=== PATIENT | female | born 1970 | race Caucasian/White ===

== ENCOUNTER → 2024-06-11 16:50 | Outpatient (CLI) | payer OTHER, SELFPAY ==
--- NOTE | 2024-06-11 16:53 | DI.MRI.S_ITS ---
PROCEDURE: MR KNEE RT WO CON INDICATIONS: EVALUATE RT KNEE MENISCUS TEAR ACL TECHNIQUE: Noncontrast sagittal PD fast spin echo and T2 fast spin echo with fat saturation, sagittal 3-D FLASH with fat saturation; coronal T1 spin echo and PD fast spin echo with fat saturation, and axial PD fast spin echo with fat saturation through the knee. COMPARISON: None. FINDINGS: Image quality: Excellent. Menisci: In the medial meniscus, there is a horizontal longitudinal tear of the posterior horn, extending into the meniscus body. No extrusion of the medial meniscus body. The lateral meniscus is unremarkable. Cruciate ligaments: The fiber of the proximal ACL is discontinuous, concerning for high-grade to full-thickness tear. The PCL is intact. Medial structures: Grade 1 sprain of the MCL. Lateral structures: The lateral collateral ligament, long and short heads of the biceps femoris tendon appear intact. The popliteus tendon appears normal; the popliteofibular ligament appears intact. The posterosuperior and anteroinferior popliteomeniscal fascicles appear intact. The arcuate and fabellofibular ligaments appear intact, on either side of the lateral inferior geniculate artery. Iliotibial band appears normal. Anterior structures: The quadriceps tendon is intact. Mild tendinosis of the proximal patellar tendon. Mild Hoffa's fat pad edema. The patellofemoral ligaments are intact. Bones and cartilage: There is mild chondral irregularity in the median ridge, with mild subchondral marrow edema, degenerative. Cartilage of the trochlea is unremarkable. The cartilage of the medial and the lateral compartments are unremarkable. Mild marrow edema of the tibial eminence, reactive. No acute fracture. Joint space: Small knee effusion. Moderate popliteal cyst. Popliteal vasculature is unremarkable. IMPRESSION: 1. High-grade to full-thickness tear of the proximal ACL. 2. Horizontal longitudinal tear of the medial meniscus. 3. Mild chondrosis of the patellofemoral compartment. 4. Moderate sized popliteal cyst. Dictated by: Aziza Law M.D. on 06/12/2024 at 12:20 Approved by: Aziza Law M.D. on 06/12/2024 at 12:30
== END ==
LOC: MRI 16:52
PROVIDERS: PCP Student in an Organized Health Care Education/Training Program; Referring Provider Orthopaedic Surgery; Visit Provider Orthopaedic Surgery
DX: S83.241A Other tear of medial meniscus, current injury, right knee, initial encounter (principal); S83.511A Sprain of anterior cruciate ligament of right knee, initial encounter; M71.21 Synovial cyst of popliteal space [Baker], right knee; M22.41 Chondromalacia patellae, right knee; M23.91 Unspecified internal derangement of right knee
CPT/HCPCS: 73721